=== PATIENT | female | born 1990 | race Caucasian/White ===

== ENCOUNTER → 2025-02-28 12:32 | Outpatient (BNVA) | payer OTHER, SELFPAY | PROVIDERS: Referring Provider Nurse Practitioner Family; Visit Provider Psychiatry & Neurology Neurology | DX: R26.89 Other abnormalities of gait and mobility (principal); R51.9 Headache, unspecified; G71.11 Myotonic muscular dystrophy; E55.9 Vitamin D deficiency, unspecified; R29.90 Unspecified symptoms and signs involving the nervous system; R25.2 Cramp and spasm; R53.1 Weakness; R29.818 Other symptoms and signs involving the nervous system; R25.8 Other abnormal involuntary movements | CPT/HCPCS: 36415; 82306; 82525; 82550; 82607; 82746; 83735; 83921; 84443; 85651; 86140; 86160; 86162; 86235; 86255; 86337; 86341; 86376; 86431; 86592 ==

== ENCOUNTER 2025-04-04 12:27 | Outpatient (CLI) | payer OTHER, SELFPAY ==
--- NOTE | 2025-04-04 13:00 | MR_ITS ---
WS: [id number] MRI HEAD WITH CONTRAST TECHNIQUE: Sagittal T1, T2 axial, T2 axial FLAIR, axial susceptibility weighted imaging, axial diffusion weighted images, and coronal T2 images were obtained. Pre and post-T1 axial and post T1 coronal images. ADC and FSPGR images. CLINICAL INFORMATION: R26.89 - Other abnormalities of gait and mobility COMPARISON: None. FINDINGS: No evidence of restricted diffusion to suggest acute ischemia. Ventricular system and basilar cisterns are patent. No hydrocephalus. Normal reyna-white differentiation. No suspicious intracranial signal abnormalities. Normal optic chiasm and pituitary infundibulum. Temporal lobes and hippocampal formations are normal in appearance. Corpus callosum is normal. No abnormal gadolinium enhancement. MR/MR head wo/w con [id number] IMPRESSION: 1. No evidence of restricted diffusion to suggest acute ischemia. 2. No suspicious intracranial signal abnormalities. 3. No abnormal enhancement. 4. No other acute findings
--- NOTE | 2025-04-04 13:45 | MR_ITS ---
WS: [id number] MR CERVICAL SPINE WO/W HISTORY: R51.9 - Headache, unspecified TECHNIQUE: Sagittal T1, T2 and T2 inversion recovery; axial T2, T2 gradient and fiesta. Post gadolinium imaging with fat saturation technique. FINDINGS:Straightening of the normal cervical lordosis. No high grade central canal narrowing. Cord signal is normal. No abnormal gadolinium enhancement. No lesions in the cervical cord. No cord atrophy. C2-3: Spinal canal and foramen are patent. C3-4: Spinal canal and foramen are patent. C4-5: Mild facet arthropathy. Spinal canal and foramen are patent. C5-6: Mild disc osteophyte ridging. Mild facet arthropathy. Mild LEFT greater than RIGHT bony foraminal narrowing. C6-7: Mild disc osteophyte complex with a tiny central protrusion. Mild LEFT foraminal narrowing. Mild facet arthropathy. C7-T1: Spinal canal and foramen are patent. MR/MR cervical spine wo/w [id number] IMPRESSION: 1. Cord signal is normal. 2. No suspicious or enhancing lesions in the cervical cord. No cord atrophy. 3. Minimal spondylitic changes described above.
[2025-04-04] MEDS: gadobenate dimeglumine 20 mL vial IV (14:07)
== END 2025-04-04 12:28 | disposition home or self-care (01) ==
LOC: RAD 12:30
PROVIDERS: Visit Provider Psychiatry & Neurology Neurology
DX: R26.89 Other abnormalities of gait and mobility (principal); R51.9 Headache, unspecified; G71.11 Myotonic muscular dystrophy; M48.02 Spinal stenosis, cervical region; M47.892 Other spondylosis, cervical region; M25.78 Osteophyte, vertebrae
CPT/HCPCS: 70553; 72156

== ENCOUNTER 2025-04-25 16:03 | Outpatient (CLI) | payer OTHER, SELFPAY | END 2025-04-25 16:04 | disposition home or self-care (01) | PROVIDERS: Visit Provider Psychiatry & Neurology Neurology | DX: E53.8 Deficiency of other specified B group vitamins (principal); R29.818 Other symptoms and signs involving the nervous system; R53.1 Weakness; R25.2 Cramp and spasm; R25.8 Other abnormal involuntary movements; R29.90 Unspecified symptoms and signs involving the nervous system | CPT/HCPCS: 36415; 82607; 83520; 86255 ==

== ENCOUNTER 2025-07-22 05:00 | Outpatient (RCR) | payer BC, SELFPAY | END 2025-08-20 23:59 | disposition home or self-care (01) | LOC: SPT 05:00 | PROVIDERS: Visit Provider Family Medicine | DX: R29.6 Repeated falls (principal) | CPT/HCPCS: 97032; 97110; 97112; 97161 ==

== ENCOUNTER 2025-09-21 06:30 | Outpatient (RCR) | payer BC, SELFPAY | END 2025-10-20 23:59 | disposition home or self-care (01) | LOC: SPT 06:30 | PROVIDERS: Visit Provider Family Medicine | DX: R26.89 Other abnormalities of gait and mobility (principal) | CPT/HCPCS: 97110 ==